=== PATIENT | female | born 1945 | race Caucasian/White ===

== ENCOUNTER 2019-08-05 12:20 | Emergency (ER) | payer MEDICARE, OTHER ==
[~2019-08-05] VITALS: Ht 172.7 cm; Wt 72.6 kg
[2019-08-05 12:37] VITALS: BP 130/80
[2019-08-05 13:25] LABS: Basophils # (auto) 0 uL; Basophils % (auto) 0.5 % (0.0-2.0); Eosinophils # (auto) 0.1 uL; Eosinophils % (auto) 1.1 % (0.0-7.0); Hematocrit 45.4 % (36.0-46.0); Hemoglobin 14.6 g/dL (12.2-16.2); Lymphocytes % (auto) 17.7 % (10.0-50.0); Mean Corpuscular Hgb Conc. 32.2 g/dL (32.0-36.0); Monocytes # (auto) 0.4 uL; Neutrophils # (auto) 3.9 uL; Neutrophils % (auto) 72.7 % (37.0-80.0); Platelet Count (auto) 282 10^3/uL (140-450); Red Cell Distribution Width 20.9 % (11.8-14.3); White Blood Cell 5.4 10^3/uL (4.4-10.8)
[2019-08-05 13:45] LABS: Albumin 2.9 g/dL (3.4-5.0); Anion Gap 5 (5-15); Blood Urea Nitrogen 25 mg/dL (7-18); Calcium 8.1 mg/dL (8.5-10.1); Carbon Dioxide 26 mmol/L (21-32); Chloride 107 mmol/L (98-107); Glucose 109 mg/dL (74-106); Potassium 3.8 mmol/L (3.5-5.1); Sodium 138 mmol/L (136-145)
[2019-08-05 13:54] LABS: Alanine Aminotransferase 22 U/L (13-56); Alkaline Phosphatase 111 U/L (45-117); Aspartate Aminotransferase 13 U/L (15-37); BUN/Creatinine Ratio 35.7; Bilirubin, Total 0.4 mg/dL (0.2-1.0); GFR African American 106 mL/min; GFR Non-African American 88 mL/min; Total Protein 6.5 g/dL (6.4-8.2)
== END 2019-08-05 15:35 | disposition left against medical advice (07) ==
LOC: ER 12:20 → EDBD 12:20 → ER 15:35
DX: R11.2 Nausea with vomiting, unspecified (principal); Z53.21 Procedure and treatment not carried out due to patient leaving prior to being seen by health care provider
CPT/HCPCS: 36415; 74176; 80053; 84484; 85025; 93005

== ENCOUNTER 2021-02-17 00:40 | Emergency (ER) | payer OTHER ==
[~2021-02-17] VITALS: Ht 162.6 cm; Wt 49.9 kg
[2021-02-17 01:42] LABS: Basophils # (auto) 0.1 10 ^3/uL (0-0.2); Basophils % (auto) 0.7 % (0.0-2.0); Eosinophils # (auto) 0.1 10 ^3/uL (0-0.8); Eosinophils % (auto) 1.3 % (0.0-7.0); Hematocrit 43.1 % (36.0-46.0); Hemoglobin 14.8 g/dL (12.2-16.2); Lymphocytes # (auto) 1.6 10 ^3/uL (0.4-5.4); Lymphocytes % (auto) 17.7 % (10.0-50.0); Mean Corpuscular Hemoglobin 29.5 pg (28.0-32.0); Mean Corpuscular Hgb Conc. 34.3 g/dL (32.0-36.0); Monocytes # (auto) 1.3 10 ^3/uL (0-1.3); Monocytes % (auto) 13.6 % (0.0-12.0); Neutrophils # (auto) 6.2 10 ^3/uL (1.6-8.6); Neutrophils % (auto) 66.7 % (37.0-80.0); Nucleated Red Blood Cells % 0.1 %; Red Blood Cells 5.01 10^6/uL (4.0-5.20); White Blood Cell 9.3 10^3/uL (4.4-10.8)
[2021-02-17 01:57] LABS: Alanine Aminotransferase 17 U/L (13-56); Albumin 2.9 g/dL (3.4-5.0); Anion Gap 9 (5-15); Aspartate Aminotransferase 17 U/L (15-37); BUN/Creatinine Ratio 23.8; Blood Urea Nitrogen 15 mg/dL (7-18); Calcium 8.3 mg/dL (8.5-10.1); Carbon Dioxide 28 mmol/L (21-32); Chloride 102 mmol/L (98-107); GFR African American 119 mL/min; GFR Non-African American 98 mL/min; Glucose 136 mg/dL (74-106); INR 0.99 (0.9-1.15); Magnesium 2.1 mg/dL (1.6-2.6); Sodium 139 mmol/L (136-145)
[2021-02-17] MEDS ORDERED: ONDANSETRON HCL 4 MG/2 ML VIAL IV ONE ×2 (02:00→12:30)
[2021-02-17 02:02] LABS: Alkaline Phosphatase 109 U/L (45-117); Bilirubin, Total 0.6 mg/dL (0.2-1.0); Total Protein 6.9 g/dL (6.4-8.2)
[2021-02-17] MEDS ORDERED: TETANUS-DIPTH-ACEL PERTUSSIS 0.5ML SYR Tdap IM ONE (05:00)
[2021-02-17] MEDS ORDERED: POTASSIUM EFFERVESENT TAB 25 MEQ PO ONE (05:15)
[2021-02-17] MEDS ORDERED: POTASSIUM CHL 20MEQ/100ML 100 ML IV STA (05:36)
[2021-02-17] MEDS ORDERED: METOCLOPRAMIDE HCL 5MG/ml INJ 2ml VIAL IV ONE (06:45)
[2021-02-17] MEDS ORDERED: fentaNYL CITRATE 100 MCG/2 ML VL IV ONE (06:45)
[2021-02-17 09:40] LABS: Urine Bacteria MOD /hpf (None Seen); Urine Blood 1+ /uL (Negative); Urine Mucus FEW (None Seen); Urine WBC 822 /hpf (0 - 5); Urine WBC Clumps PRESENT /hpf (None Seen)
[2021-02-17] MEDS ORDERED: MORPHINE SULF INJ 2 MG/ML SYRINGE 1ML IV ONE (12:30)
[2021-02-17 12:49] VITALS: BP 94/62
== END 2021-02-17 13:37 | disposition short-term general hospital (02) ==
LOC: ER 00:40 → EDBD 00:40 → ER 13:37
DX: S22.089A Unspecified fracture of T11-T12 vertebra, initial encounter for closed fracture (principal); S01.01XA Laceration without foreign body of scalp, initial encounter; E87.6 Hypokalemia; R62.7 Adult failure to thrive; Z88.2 Allergy status to sulfonamides; Z68.1 Body mass index [BMI] 19.9 or less, adult; Z20.822 Contact with and (suspected) exposure to COVID-19; W18.00XA Striking against unspecified object with subsequent fall, initial encounter; Y93.89 Activity, other specified; Y92.89 Other specified places as the place of occurrence of the external cause; Y99.8 Other external cause status
CPT/HCPCS: 12001; 36415; 70450; 71045; 72125; 72128; 72131; 80053; 81001; 83735; 83880; 84484; 85025; 85049; 85610; 87426; 90471; 90715; 93005; 96365; 96366; 96375; 96376; 99285; J2270; J2405; J2765; J3010; J3480; J7050

== ENCOUNTER 2022-05-21 13:03 | Emergency (ER) | payer OTHER ==
[~2022-05-21] VITALS: Ht 160 cm; Wt 59.0 kg
[2022-05-21] MEDS ORDERED: HYDROcodone-ACET 5/325MG TAB PO ONE (13:45)
[2022-05-21 14:19] LABS: Basophils # (auto) 0 10 ^3/uL (0-0.2); Basophils % (auto) 0.6 % (0.0-2.0); Eosinophils # (auto) 0 10 ^3/uL (0-0.8); Eosinophils % (auto) 0.1 % (0.0-7.0); Hematocrit 43.6 % (36.0-46.0); Hemoglobin 14.2 g/dL (12.2-16.2); Lymphocytes % (auto) 13.9 % (10.0-50.0); Mean Corpuscular Hemoglobin 27.9 pg (28.0-32.0); Mean Corpuscular Hgb Conc. 32.5 g/dL (32.0-36.0); Mean Corpuscular Volume 85.9 fL (80.0-100.0); Monocytes # (auto) 0.4 10 ^3/uL (0-1.3); Monocytes % (auto) 5.6 % (0.0-12.0); Neutrophils # (auto) 5.7 10 ^3/uL (1.6-8.6); Neutrophils % (auto) 79.8 % (37.0-80.0); Red Blood Cells 5.08 10^6/uL (4.0-5.20); White Blood Cell 7.1 10^3/uL (4.4-10.8)
[2022-05-21 14:29] LABS: Albumin 3.4 g/dL (3.4-5.0); Potassium 4.5 mmol/L (3.5-5.1)
[2022-05-21 14:32] LABS: BUN/Creatinine Ratio 17.9; Total Protein 7.4 g/dL (6.4-8.2)
[2022-05-21 14:35] LABS: INR 1.01 (0.9-1.15); Partial Thromboplastin Time 26.5 sec (24.6-33.4)
[2022-05-21 19:00] VITALS: BP 133/67
== END 2022-05-21 19:30 | disposition short-term general hospital (02) ==
LOC: ER 13:03 → EDBD 13:03 → ER 19:30
DX: S12.100A Unspecified displaced fracture of second cervical vertebra, initial encounter for closed fracture (principal); S09.90XA Unspecified injury of head, initial encounter; R41.82 Altered mental status, unspecified; M19.90 Unspecified osteoarthritis, unspecified site; J45.909 Unspecified asthma, uncomplicated; Z88.2 Allergy status to sulfonamides; Z20.822 Contact with and (suspected) exposure to COVID-19
CPT/HCPCS: 36415; 70450; 71045; 72125; 80053; 83880; 84484; 85025; 85610; 85730; 87426; 93005; 99285; L0120

== ENCOUNTER 2022-07-25 23:44 | Emergency (ER) | payer OTHER ==
[~2022-07-25] VITALS: Ht 160 cm; Wt 61.3 kg
[2022-07-26 00:42] LABS: Hematocrit 37.5 % (36.0-46.0); Hemoglobin 11.7 g/dL (12.2-16.2); Mean Corpuscular Hemoglobin 25.1 pg (28.0-32.0); Mean Corpuscular Hgb Conc. 31.2 g/dL (32.0-36.0); Mean Corpuscular Volume 80.7 fL (80.0-100.0); Red Blood Cells 4.64 10^6/uL (4.0-5.20); Red Cell Distribution Width 17.2 % (11.8-14.3); White Blood Cell 3.8 10^3/uL (4.4-10.8)
[2022-07-26 00:43] LABS: INR 1.02 (0.9-1.15); Partial Thromboplastin Time 26.8 sec (24.6-33.4)
[2022-07-26 00:49] LABS: Basophils % (manual) 0 (0.0-2.0); Blast Cells 0; Metamyelocytes % 0; Myelocytes % 0; Promyelocytes % 0
[2022-07-26 01:08] LABS: Calcium 8.7 mg/dL (8.5-10.1); Potassium 3.7 mmol/L (3.5-5.1)
[2022-07-26 01:13] LABS: BUN/Creatinine Ratio 16.7; Bilirubin, Total 0.4 mg/dL (0.2-1.0); Total Protein 6.7 g/dL (6.4-8.2)
[2022-07-26 02:00] LABS: Band Neutrophils % (manual) 3; Eosinophils % (manual) 11 (0-7); Lymphocytes % (manual) 35 (10.0-50.0); Monocytes % (manual) 22 (0-12); Reactive Lymphocytes 2
[2022-07-26] MEDS ORDERED: ALUM & MAG HYDROX-SIMETH LIQ(MAALOX) 30 ML PO ONE (02:30)
[2022-07-26] MEDS ORDERED: HYDROcodone-ACET 10/325MG TAB PO ONE (03:30)
[2022-07-26] MEDS ORDERED: PANTOPRAZOLE 40 MG TAB PO ONE (05:30)
[2022-07-26 13:45] VITALS: BP 127/76
== END 2022-07-26 13:55 | disposition short-term general hospital (02) ==
LOC: EDUNIT# 23:44 → ER 23:44 → EDBD 23:44 → ER 07-26 13:55
DX: I20.9 Angina pectoris, unspecified (principal); R05.9 Cough, unspecified; R07.89 Other chest pain; J45.909 Unspecified asthma, uncomplicated; K21.9 Gastro-esophageal reflux disease without esophagitis; E03.9 Hypothyroidism, unspecified; Z90.89 Acquired absence of other organs; Z88.2 Allergy status to sulfonamides
CPT/HCPCS: 36415; 80053; 83880; 84484; 85007; 85027; 85610; 85730; 87040; 93005

== ENCOUNTER 2022-08-31 19:57 | Emergency (ER) | payer OTHER ==
[~2022-08-31] VITALS: Ht 160 cm; Wt 54.0 kg
[2022-08-31 21:24] LABS: Eosinophils # (auto) 0.2 10 ^3/uL (0-0.8); Monocytes # (auto) 1.4 10 ^3/uL (0-1.3); Nucleated Red Blood Cells % 0.1 %; White Blood Cell 8.4 10^3/uL (4.4-10.8)
[2022-08-31 21:28] LABS: Basophils # (auto) 0.1 10 ^3/uL (0-0.2); Basophils % (auto) 0.9 % (0.0-2.0); Eosinophils % (auto) 2.9 % (0.0-7.0); Hematocrit 44.6 % (36.0-46.0); Lymphocytes # (auto) 1.8 10 ^3/uL (0.4-5.4); Lymphocytes % (auto) 22.1 % (10.0-50.0); Mean Corpuscular Hemoglobin 24.3 pg (28.0-32.0); Mean Corpuscular Hgb Conc. 31.5 g/dL (32.0-36.0); Mean Corpuscular Volume 77.3 fL (80.0-100.0); Monocytes % (auto) 17.2 % (0.0-12.0); Neutrophils # (auto) 4.8 10 ^3/uL (1.6-8.6); Neutrophils % (auto) 56.9 % (37.0-80.0); Red Blood Cells 5.77 10^6/uL (4.0-5.20); Red Cell Distribution Width 17.5 % (11.8-14.3)
[2022-08-31 21:38] LABS: Albumin 2.5 g/dL (3.4-5.0); Calcium 9.1 mg/dL (8.5-10.1)
[2022-08-31 21:41] LABS: BUN/Creatinine Ratio 14.7
[2022-08-31 21:43] LABS: Bilirubin, Total 0.5 mg/dL (0.2-1.0); Total Protein 6.9 g/dL (6.4-8.2)
[2022-08-31 21:57] LABS: Potassium 2.8 mmol/L (3.5-5.1)
[2022-08-31] MEDS ORDERED: POTASSIUM CHL 20 Meq TABLET PO ONE (22:15)
[2022-08-31] MEDS: POTASSIUM CHL 20MEQ/100ML 100 ML IV SCH (23:19)
[2022-08-31 23:40] LABS: Urine Bacteria FEW /hpf (None Seen); Urine Blood Negative /uL (Negative); Urine Hyaline Cast FEW /lpf (0 - 2); Urine Mucus FEW (None Seen); Urine Specific Gravity 1.016 (1.001-1.035); Urine WBC 5 /hpf (0 - 5)
[2022-09-01 02:00] VITALS: BP 109/61
[2022-09-01] MEDS ORDERED: HYDROcodone-ACET 10/325MG TAB PO ONE (02:00)
[2022-09-01] MEDS: POTASSIUM CHL 20MEQ/100ML 100 ML IV SCH (02:13)
== END 2022-09-01 06:22 | disposition home or self-care (01) ==
LOC: ER 19:57
DX: E87.6 Hypokalemia (principal); K52.9 Noninfective gastroenteritis and colitis, unspecified; M19.90 Unspecified osteoarthritis, unspecified site; J45.909 Unspecified asthma, uncomplicated; Z90.89 Acquired absence of other organs; Z88.2 Allergy status to sulfonamides; Z20.822 Contact with and (suspected) exposure to COVID-19
CPT/HCPCS: 36415; 74176; 80053; 81001; 84484; 85025; 87426; 93005; 96365; 96366; 99285; J3480; J7030

== ENCOUNTER 2022-09-26 23:05 | Emergency (ER) | payer OTHER ==
[~2022-09-26] VITALS: Ht 152.4 cm; Wt 70.0 kg
[2022-09-27 00:45] LABS: Basophils # (auto) 0.1 10 ^3/uL (0-0.2); Basophils % (auto) 0.8 % (0.0-2.0); Eosinophils # (auto) 0.4 10 ^3/uL (0-0.8); Eosinophils % (auto) 6.1 % (0.0-7.0); Hematocrit 34.2 % (36.0-46.0); Hemoglobin 11.2 g/dL (12.2-16.2); Lymphocytes # (auto) 1.8 10 ^3/uL (0.4-5.4); Lymphocytes % (auto) 26.3 % (10.0-50.0); Mean Corpuscular Hemoglobin 25.9 pg (28.0-32.0); Mean Corpuscular Hgb Conc. 32.9 g/dL (32.0-36.0); Mean Corpuscular Volume 78.7 fL (80.0-100.0); Monocytes # (auto) 0.6 10 ^3/uL (0-1.3); Monocytes % (auto) 8.5 % (0.0-12.0); Neutrophils # (auto) 4.1 10 ^3/uL (1.6-8.6); Neutrophils % (auto) 58.3 % (37.0-80.0); Red Blood Cells 4.34 10^6/uL (4.0-5.20)
[2022-09-27 00:46] LABS: Red Cell Distribution Width 21.8 % (11.8-14.3)
[2022-09-27 01:05] LABS: Albumin 2.1 g/dL (3.4-5.0); BUN/Creatinine Ratio 29.1; Calcium 7.9 mg/dL (8.5-10.1); Potassium 4.3 mmol/L (3.5-5.1)
[2022-09-27 01:07] LABS: Bilirubin, Total 0.4 mg/dL (0.2-1.0); Total Protein 5.5 g/dL (6.4-8.2)
[2022-09-27 01:24] LABS: INR 0.95 (0.9-1.15); Partial Thromboplastin Time 25.8 sec (24.6-33.4)
[2022-09-27 02:27] LABS: Urine Bacteria MOD /hpf (None Seen); Urine Blood Negative /uL (Negative); Urine Specific Gravity 1.002 (1.001-1.035); Urine WBC 2 /hpf (0 - 5)
[2022-09-27] MEDS ORDERED: levETIRAcetam 500 MG/5ML INJ IV ONE (02:30)
[2022-09-27] MEDS ORDERED: HYDROmorphone HCL 2 MG/ML VL/or syr IV ONE (03:00)
[2022-09-27] MEDS ORDERED: ONDANSETRON HCL 4 MG/2 ML VIAL IV ONE (03:00)
[2022-09-27 03:10] VITALS: BP 103/60
== END 2022-09-27 01:06 | disposition short-term general hospital (02) ==
LOC: EDBD 23:05 → ER 23:05
DX: S02.2XXA Fracture of nasal bones, initial encounter for closed fracture (principal); S00.81XA Abrasion of other part of head, initial encounter; S06.5XAA Traumatic subdural hemorrhage with loss of consciousness status unknown, initial encounter; S09.8XXA Other specified injuries of head, initial encounter; R22.0 Localized swelling, mass and lump, head; M54.2 Cervicalgia; W19.XXXA Unspecified fall, initial encounter; Y93.89 Activity, other specified; Y92.89 Other specified places as the place of occurrence of the external cause; Y99.8 Other external cause status
CPT/HCPCS: 36415; 70450; 70486; 72125; 80053; 81001; 84484; 85025; 85610; 85730; 93005; 96365; 96372; 99291; J1170; J1953; J2405; J7060

== ENCOUNTER 2023-10-01 17:02 | Emergency (ER) | payer MEDICARE, OTHER ==
[~2023-10-01] VITALS: Ht 160 cm; Wt 64.0 kg
[2023-10-01] MEDS ORDERED: ACET500T58 PO (20:34)
[2023-10-01 20:54] VITALS: BP 122/52; PULSE 89; RESP 19; TEMP 98; O2SAT 95
[2023-10-01] MEDS: CEPHALEXIN 250 MG CAP PO ONE (20:56)
== END 2023-10-01 20:56 | disposition home or self-care (01) ==
LOC: ER 17:02 → EDUNIT# 17:02 → EDBD 17:02 → ER 20:56
DX: S01.01XA Laceration without foreign body of scalp, initial encounter (principal); J45.909 Unspecified asthma, uncomplicated; K21.9 Gastro-esophageal reflux disease without esophagitis; Z88.2 Allergy status to sulfonamides; W18.09XA Striking against other object with subsequent fall, initial encounter; Y93.01 Activity, walking, marching and hiking; Y92.89 Other specified places as the place of occurrence of the external cause; Y99.8 Other external cause status
CPT/HCPCS: 12002; 70450; 93005

== ENCOUNTER 2024-06-17 13:41 | Emergency (ER) | payer MEDICARE, OTHER ==
[~2024-06-17 13:41] MED LIST: ACET500T58 PO
--- NOTE | 2024-06-17 14:59 | DVH ---
EXAM: XY CHEST PORTABLE TECHNIQUE: Single frontal chest radiograph CLINICAL HISTORY: short of breath COMPARISON: CHEST XRAY 1 VIEW on DOS: 07/26/22, CXR1 on DOS: 07/26/22, CHEST PORTABLE on DOS: 2 Findings/Impression: Frontal chest radiograph demonstrates no acute osseous or superficial soft tissue abnormalities. The trachea is midline. The cardiac silhouette and mediastinum are within normal limits. Mild pulmonary vascular congestion versus perihilar opacities. No pneumothorax or pleural effusions.
[2024-06-17 15:10] LABS: Chloride 105 mmol/L (98-107); Potassium 4.2 mmol/L (3.5-5.1); Sodium 137 mmol/L (136-145)
[2024-06-17 15:11] LABS: Anion Gap 5 (5-15); Basophils # (auto) 0.1 10 ^3/uL (0-0.2); Basophils % (auto) 0.4 % (0.0-2.0); Calcium 9.3 mg/dL (8.7-10.4); Carbon Dioxide 27 mmol/L (20-31); Eosinophils # (auto) 0.2 10 ^3/uL (0-0.8); Eosinophils % (auto) 1.3 % (0.0-7.0); Hematocrit 38.4 % (36.0-46.0); Hemoglobin 12.5 g/dL (12.2-16.2); Lymphocytes # (auto) 0.7 10 ^3/uL (0.4-5.4); Lymphocytes % (auto) 4.5 % (10.0-50.0); Mean Corpuscular Hemoglobin 27.8 pg (28.0-32.0); Mean Corpuscular Hgb Conc. 32.5 g/dL (32.0-36.0); Mean Corpuscular Volume 85.5 fL (80.0-100.0); Monocytes # (auto) 1.1 10 ^3/uL (0-1.3); Neutrophils # (auto) 13.2 10 ^3/uL (1.6-8.6); Neutrophils % (auto) 86.8 % (37.0-80.0); Platelet Count (auto) 284 10^3/uL (140-450); Red Blood Cells 4.49 10^6/uL (4.0-5.20); Red Cell Distribution Width 18.1 % (11.8-14.3); White Blood Cell 15.2 10^3/uL (4.4-10.8)
[2024-06-17 15:16] LABS: BUN/Creatinine Ratio 17.7 (10.0-20.0); Blood Urea Nitrogen 14 mg/dL (9-23); Glucose 119 mg/dL (74-106)
[2024-06-17 16:33] LABS: Urine Bacteria None Seen /hpf (None Seen)
--- NOTE | 2024-06-17 16:35 | ED.PDOC ---
SOB-HPI HPI Comments 78 y.o female with PMH of asthma, presents to the ED for a chief SOB associated with a nonproductive cough. 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 Patient states today while taking a shower, SOB worsened and was unable to speak in full sentences. EMS found patient with oxygen saturation in the low 80s on room air, administered one DuoNeb treatment on scene and placed patient on 4 liters of oxygen NC. Patient is not on any home oxygen at home, states she uses her inhaler and asthma medication but has minimal to no relief. She denies any other symptoms or pain at this time. Chief Complaint: Shortness of Breath Time Seen by MD: 16:10 Primary Care Provider: ENMA Wilkinson notes: Nurses Notes, Continuous Miner Operator Helper Notes, Medications, Allergies Information Source: Patient, Emergency Med Personnel Mode of Arrival: EMS Severity: Moderate Timing: Months Duration: Since onset Context: At Rest PE Risk Factors: None History of: Asthma Modifying Factors: Nothing Associated Signs and Symptoms: Cough If cough with SOB: Non-Productive Past Medical History PAST MEDICAL HISTORY: Arthritis, Asthma, GERD, Thyroid Surgical History: , Thyroidectomy ARCHITECTURAL DRAFTER History: No Pertinent ARCHITECTURAL DRAFTER History Family History Family History: Reviewed,noncontributory to illness Social History Smoker: Non-Smoker Alcohol: Denies ETOH Use Drugs: Denies Drug Use Lives In: Home Constitutional: denies: chills, diaphoresis, fatigue, fever, malaise, sweats, weakness, others EENTM: denies: blurred vision, double vision, ear bleeding, ear discharge, ear drainage, ear pain, ear ringing, eye pain, eye redness, hearing loss, mouth pain, mouth swelling, nasal discharge, nose bleeding, nose congestion, nose pain, photophobia, tearing, throat pain, throat swelling, voice changes, others Respiratory: reports: cough, SOB at rest, shortness of breath, SOB with excertion; denies: hemoptysis, orthopnea, stridor, wheezing, others Cardiovascular: denies: chest pain, dizzy spells, diaphoresis, Dyspnea on exertion, edema, irregular heart beat, left arm pain, lightheadedness, palpitations, PND, syncope, others Gastrointestinal: denies: abdomen distended, abdominal pain, blood streaked bowels, constipated, diarrhea, dysphagia, difficulty swallowing, hematemesis, melena, nausea, poor appetite, poor fluid intake, rectal bleeding, rectal pain, vomiting, others Genitourinary: denies: abnormal vagina bleeding, burning, dyspareunia, dysuria, flank pain, frequency, hematuria, incontinence, pain, , vagina discharge, urgency, others Neurological: denies: dizziness, fainting, headache, left sided numbness, left sided weakness, numbness, paresthesia, pre-existing deficit, right sided numbness, right sided weakness, seizure, speech problems, tingling, tremors, weakness, others Musculoskeletal: denies: back pain, gout, joint pain, joint swelling, muscle pain, muscle stiffness, neck pain, others Integumetry: denies: bruises, change in color, change in hair/nails, dryness, laceration, lesions, lumps, rash, wounds, others Allergic/Immunocompromised: denies: Difficulty Healing, Frequent Infections, Hives, Itching, others Hematologic/Lymphatic: denies: anemia, blood clots, easy bleeding, easy bruising, swollen glands, others Endocrine: denies: excessive hunger, excessive sweating, excessive thirst, excessive urination, flushing, intolerance to cold, intolerance to heat, unexplained weight gain, unexplained weight loss, others Psychiatric: denies: anxiety, bipolar disorder, depression, hopeless, panic disorder, schizophrenia, sleepless, suicidal, others All Other Systems: Reviewed and Negative Physical Exam General Appearance: Mild Distress HEENT: Normal ENT Inspection Neck: Full Range of Motion, Normal Inspection Respiratory: Decreased Breath Sounds, No Accessory Muscle Use, No Respiratory Distress, Wheezing Cardiovascular: No Edema, No JVD, Regular Rate/Rhythm Breast Exam: Deferred Gastrointestinal: Non Tender, Soft Genitalia: Deferred Pelvic: Deferred Rectal: Deferred Extremities: Normal inspection, Normal range of motion, Non-tender, No pedal edema Neurologic: Alert, No Motor Deficits, Normal Affect, Normal Mood, No Sensory Deficits Cerebellar Function: NOT DONE Reflexes: NOT DONE Skin: Dry, Normal Color, Warm Lymphatic: NOT DONE Was a procedure done? Was a procedure done?: No Differential Dx Differential Diagnosis: Asthma, Bronchitis, CHF, COPD, Pneumonia, Respiratory Distress, URI X-Ray, Labs, Meds, VS Vital Signs Date Time Temp Pulse Resp B/P (MAP) Pulse Ox O2 Delivery O2 Flow Rate FiO2 06/17/24 17:40 20 97 Nasal Cannula* 4 36 06/17/24 17:35 99.9 103 20 117/67 (84) 96 06/17/24 17:34 92 16 117/56 (76) 95 06/17/24 16:52 98.4 94 18 126/64 (84) 96 98.4 06/17/24 14:13 100 18 98 Nasal Cannula 4.0 06/17/24 14:11 98.7 100 18 133/75 (94) 98 98.7 Lab Test 06/17/24 17:52 06/17/24 16:46 06/17/24 14:47 06/17/24 14:33 Range/Units Troponin I High Sensitivity 13 14 14 </=34 ng/L White Blood Count 15.2 H 4.4-10.8 10^3/uL Red Blood Count 4.49 4.0-5.20 10^6/uL Hemoglobin 12.5 12.2-16.2 g/dL Hematocrit 38.4 36.0-46.0 % Mean Corpuscular Volume 85.5 80.0-100.0 fL Mean Corpuscular Hemoglobin 27.8 L 28.0-32.0 pg Mean Corpuscular Hemoglobin Concent 32.5 32.0-36.0 g/dL Red Cell Distribution Width 18.1 H 11.8-14.3 % Platelet Count 284 140-450 10^3/uL Mean Platelet Volume 7.4 6.9-10.8 fL Neutrophils (%) (Auto) 86.8 H 37.0-80.0 % Lymphocytes (%) (Auto) 4.5 L 10.0-50.0 % Monocytes (%) (Auto) 7.0 0.0-12.0 % Eosinophils (%) (Auto) 1.3 0.0-7.0 % Basophils (%) (Auto) 0.4 0.0-2.0 % Neutrophils # (Auto) 13.2 H 1.6-8.6 10 ^3/uL Lymphocytes # (Auto) 0.7 0.4-5.4 10 ^3/uL Monocytes # (Auto) 1.1 0-1.3 10 ^3/uL Eosinophils # (Auto) 0.2 0-0.8 10 ^3/uL Basophils # (Auto) 0.1 0-0.2 10 ^3/uL Nucleated Red Blood Cells 0.0 % Sodium Level 137 136-145 mmol/L Potassium Level 4.2 3.5-5.1 mmol/L Chloride Level 105 98-107 mmol/L Carbon Dioxide Level 27 20-31 mmol/L Anion Gap 5 5-15 Blood Urea Nitrogen 14 9-23 mg/dL Creatinine 0.79 0.550-1.02 mg/dL Glomerular Filtration Rate Calc 77 >90 mL/min BUN/Creatinine Ratio 17.7 10.0-20.0 Serum Glucose 119 H 74-106 mg/dL Lactic Acid Level 1.2 0.4-2.0 mmol/L Calcium Level 9.3 8.7-10.4 mg/dL B-Type Natriuretic Peptide 46.66 0-100 pg/mL Urine Color Light-yellow Yellow Urine Clarity Clear Clear Urine pH 5.0 5.0-9.0 Urine Specific [place] 1.019 1.001-1.035 Urine Protein Negative Negative Urine Ketones 1+ H Negative Urine Blood Negative Negative /uL Urine Nitrite Negative Negative Urine Bilirubin Negative Negative Urine Urobilinogen Normal Negative mg/dL Urine Leukocyte Esterase Negative Negative /uL Urine RBC 1 0 - 4 /hpf Urine WBC <1 0 - 5 /hpf Urine Squamous Epithelial Cells Few <5 /hpf Urine Bacteria None seen None Seen /hpf Urine Glucose Normal Normal mg/dL Current Medications Medications (Trade) Dose Ordered Sig/[place] Route Start Time Stop Time Status Last Admin Methylprednisolone Sodium Succinate (Solu Medrol) 125 mg ONCE ONCE IV 06/17/24 16:15 06/17/24 16:16 DC 06/17/24 17:19 Oxycodone/ Acetaminophen (Percocet 5/ 325MG Tablet) 2 tab ONCE ONCE PO 06/17/24 17:30 06/17/24 17:31 DC 06/17/24 17:34 Ceftriaxone Sodium 50 ml @ 100 mls/hr ONCE ONCE IV 06/17/24 18:00 06/17/24 18:29 DC 06/17/24 18:44 PROCEDURE(s): CXRP - CHEST PORTABLE REASON: short of breath ORDER NUMBER(s): [id number], ACCESSION NUMBER(s): [id number] EXAM: XY CHEST PORTABLE TECHNIQUE: Single frontal chest radiograph CLINICAL HISTORY: short of breath COMPARISON: CHEST XRAY 1 VIEW on DOS: 07/26/22, CXR1 on DOS: 07/26/22, CHEST PORTABLE on DOS: 05/21/22 Findings/Impression: Frontal chest radiograph demonstrates no acute osseous or superficial soft tissue abnormalities. The trachea is midline. The cardiac silhouette and mediastinum are within normal limits. Mild pulmonary vascular congestion versus perihilar opacities. No pneumothorax or pleural effusions. X-Ray, Labs, Meds, VS Comment 78-year-old female with a history of asthma complaining of shortness a breath Vitals unremarkable, note patient is on 4 L nasal cannula Exam remarkable for diminished breath sounds, scattered expiratory wheezes, no respiratory distress Chest x-ray Findings/Impression: Frontal chest radiograph demonstrates no acute osseous or superficial soft tissue abnormalities. The trachea is midline. The cardiac silhouette and mediastinum are within normal limits. Mild pulmonary vascular congestion versus perihilar opacities. No pneumothorax or pleural effusions. CBC, CMP, BNP, troponin, UA and lactate remarkable for WBC 15.2, left shift, no other abnormalities of acute significance Patient Received a DuoNeb treatment EN route to the ED In the ED the patient received the following: Albuterol 5 mg/Atrovent 0.5 mg nebulized, Solu-Medrol 125 mg IV, Rocephin 1 g IV, Zithromax 500 mg IV Case discussed with Dr. Candelaria at [facility] who will arrange for the patient to be transferred to either [facility] or [place]. Authorization [id number] Time of 1ST Reevaluation: 16:41 Reevaluation 1ST: Unchanged Patient Education/Counseling: Diagnosis, Treatment, Prognosis Family Education/Counseling: No Family Present Departure 1 Departure Time of Disposition: 17:57 Impression: Primary Impression: Asthma exacerbation Qualified Codes: J45.901 - Unspecified asthma with (acute) exacerbation Additional Impressions: Respiratory failure Qualified Codes: J96.90 - Respiratory failure, unspecified, unspecified whether with hypoxia or hypercapnia Pneumonitis Disposition: 02 SHORT TERM HOSPITAL Admit to: [facility] Condition: Guarded Critical Care Note Critical Care Time?: No Stability Stability form required: No Stable for transfer: To designated facility Heart Score Heart Score: Heart Score Response (Comments) Value History N/A 0 EKG N/A 0 Age N/A 0 Risk Factors N/A 0 Troponin N/A 0 Total 0 I personally scribed for PENNY PLUNKETT MD ([facility]) on 06/17/24 at 16:35. Electronically submitted by Irais Barrientos ([facility]). I personally scribed for PENNY PLUNKETT MD ([facility] on 06/17/24 at 16:42. Electronically submitted by Irais Barrientos ([facility]). I personally scribed for PENNY PLUKNETT MD ([facility]) on 06/17/24 at 18:57. Electronically submitted by Irais Barrientos ([facility]). PENNY PLUNKETT MD Jun 17, 2024 16:35
[2024-06-17 16:39] LABS: Urine Blood Negative /uL (Negative); Urine Clarity Clear (Clear); Urine Color Light-Yellow (Yellow); Urine Protein, UAD Negative (Negative); Urine Specific Gravity 1.019 (1.001-1.035); Urine Urobilinogen Normal (Negative); Urine WBC <1 /hpf (0 - 5)
[2024-06-17] MEDS: methylPREDNISolone SOD SUCC 125 MG/2 ML VL IV ONE (17:19)
[2024-06-17] MEDS: OXYCODONE W/ ACETAMINOPHEN 5/325MG TABLET PO ONE (17:34)
[2024-06-17] MEDS: AZITHROMYCIN 500MG/ 250ML 250 ML IV ONE (18:00)
[2024-06-17] MEDS: cefTRIAXone 1GM/50ML D5W 50 ML IV ONE (18:44)
[2024-06-17] MEDS: IPRATROPIUM BROM 0.5 MG/2.5ML INH SOL NEB ONE (21:11)
[2024-06-17] MEDS: ALBUTEROL SULF 2.5 MG/0.5ML(0.5%) NEB SOLN NEB ONE (21:11)
[2024-06-17 22:12] VITALS: BP 112/66; TEMP 97.6
[2024-06-17 22:17] VITALS: PULSE 100; RESP 18; O2SAT 98
== END 2024-06-17 22:25 | disposition short-term general hospital (02) ==
LOC: EDBD 13:41 → ER 13:41
DX: J45.901 Unspecified asthma with (acute) exacerbation (principal); J96.90 Respiratory failure, unspecified, unspecified whether with hypoxia or hypercapnia; J98.4 Other disorders of lung; K21.9 Gastro-esophageal reflux disease without esophagitis; M19.90 Unspecified osteoarthritis, unspecified site; Z90.89 Acquired absence of other organs; Z98.890 Other specified postprocedural states
CPT/HCPCS: 36415; 71045; 80048; 81001; 83605; 83880; 84484; 85025; 94640; 96365; 96366; 96368; 96375; 99285; J0456; J0696; J2919

== ENCOUNTER 2025-04-15 20:23 | Inpatient (IN) | payer MEDICARE, OTHER ==
[~2025-04-15] VITALS: Ht 157.5 cm; Wt 72.1 kg
[2025-04-15] MEDS: SODIUM CHLORIDE 0.9% 500 ML IV ONE (20:45)
--- NOTE | 2025-04-15 20:45 | ED.PDOC ---
SOB-HPI HPI Comments This is a 79-year-old female with past medical history of asthma, hypertension, fibromyalgia, rheumatoid arthritis, and hypothyroidism brought in by EMS to the hospital due to shortness of breaths. Per patient, she has shortness of breaths since 1 days, tried inhaler at home which did not help. She also reports of chest tightness and cough. She has severe shortness of breaths which can not speak in full sentences. She denies chest pain, headache, blurry vision, fever, or any motor/sensory deficits. Per EMS report, blood pressure at home was 149/85, and they nebulized enroute. EKG upon arrival at ER showed sinus tachycardia with poor R-wave progression. She uses oxygen as needed at home. Chief Complaint: Shortness of Breath Time Seen by MD: 20:27 Primary Care Provider: ENMA Mode of Arrival: EMS Past Medical History PAST MEDICAL HISTORY: Arthritis, Asthma, GERD, Thyroid Surgical History: , Thyroidectomy STAFF ELECTRONIC WARFARE OFFICER History: No Pertinent STAFF ELECTRONIC WARFARE OFFICER History Family History Family History: Reviewed,noncontributory to illness Social History Smoker: Non-Smoker Alcohol: Denies ETOH Use Drugs: Denies Drug Use Lives In: Home Physical Exam General Appearance: No Apparent Distress, Normal HEENT: Normal ENT Inspection, Pharynx Normal, TMs Normal Neck: Full Range of Motion, Non-Tender, Normal, Normal Inspection Respiratory: Accessory Muscle Use, Decreased Breath Sounds, Rhonchi, Wheezing Cardiovascular: No Edema, No JVD, No Murmur, No Gallop, Normal Peripheral Pulses, Regular Rate/Rhythm Breast Exam: Deferred Gastrointestinal: No Organomegaly, Non Tender, No Pulsatile Mass, Normal Bowel Sounds, Soft Genitalia: Deferred Pelvic: Deferred Rectal: Deferred Extremities: No calf tenderness, Normal capillary refill, Normal inspection, Normal range of motion, Non-tender, No pedal edema Neurologic: Alert, airline counter agent II-XII nml as Tested, No Motor Deficits, Normal Affect, Normal Mood, No Sensory Deficits Cerebellar Function: Normal Reflexes: Normal Skin: Dry, Normal Color, Warm Lymphatic: No Adenopathy Was a procedure done? Was a procedure done?: No Differential Dx Differential Diagnosis: Asthma, Bronchitis, Pneumonia X-Ray, Labs, Meds, VS Vital Signs Date Time Temp Pulse Resp B/P (MAP) Pulse Ox O2 Delivery O2 Flow Rate FiO2 04/15/25 22:12 98.5 104 20 147/112 (124) 96 98.5 04/15/25 21:03 24 98 Room Air* 0 21 21 04/15/25 20:33 104 04/15/25 20:32 99.0 101 24 131/87 98 99.0 Lab Test 04/15/25 21:00 04/15/25 20:53 Range/Units Urine Color Light-yellow Yellow Urine Clarity Clear Clear Urine pH 5.5 5.0-9.0 Urine Specific [place] 1.009 1.001-1.035 Urine Protein Negative Negative Urine Ketones Negative Negative Urine Blood Negative Negative /uL Urine Nitrite Negative Negative Urine Bilirubin Negative Negative Urine Urobilinogen Normal Negative mg/dL Urine Leukocyte Esterase Negative Negative /uL Urine RBC <1 0 - 4 /hpf Urine Microscopic WBC 2 0-5 /HPF Urine Squamous Epithelial Cells Few <5 /hpf Urine Bacteria None seen None Seen /hpf Urine Hyaline Casts Few 0 - 2 /lpf Urine Glucose Normal Normal mg/dL White Blood Count 6.4 4.4-10.8 10^3/uL Red Blood Count 4.50 4.0-5.20 10^6/uL Hemoglobin 13.8 12.2-16.2 g/dL Hematocrit 41.1 36.0-46.0 % Mean Corpuscular Volume 91.2 80.0-100.0 fL Mean Corpuscular Hemoglobin 30.6 28.0-32.0 pg Mean Corpuscular Hemoglobin Concent 33.5 32.0-36.0 g/dL Red Cell Distribution Width 15.8 H 11.8-14.3 % Platelet Count 254 140-450 10^3/uL Mean Platelet Volume 7.0 6.9-10.8 fL Neutrophils (%) (Auto) 29.1 L 37.0-80.0 % Lymphocytes (%) (Auto) 46.5 10.0-50.0 % Monocytes (%) (Auto) 11.1 0.0-12.0 % Eosinophils (%) (Auto) 12.3 H 0.0-7.0 % Basophils (%) (Auto) 1.0 0.0-2.0 % Neutrophils # (Auto) 1.9 1.6-8.6 10 ^3/uL Lymphocytes # (Auto) 3.0 0.4-5.4 10 ^3/uL Monocytes # (Auto) 0.7 0-1.3 10 ^3/uL Eosinophils # (Auto) 0.8 0-0.8 10 ^3/uL Basophils # (Auto) 0.1 0-0.2 10 ^3/uL Nucleated Red Blood Cells 0.1 % Sodium Level 141 136-145 mmol/L Potassium Level 4.0 3.5-5.1 mmol/L Chloride Level 106 98-107 mmol/L Carbon Dioxide Level 26 20-31 mmol/L Anion Gap 9 5-15 Blood Urea Nitrogen 10 9-23 mg/dL Creatinine 0.94 0.550-1.02 mg/dL Glomerular Filtration Rate Calc 63 >90 mL/min BUN/Creatinine Ratio 10.6 10.0-20.0 Serum Glucose 108 H 74-106 mg/dL Lactic Acid Level 2.0 0.4-2.0 mmol/L Calcium Level 9.1 8.7-10.4 mg/dL Magnesium Level 2.0 1.6-2.6 mg/dL Total Bilirubin 0.4 0.2-1.0 mg/dL Aspartate Amino Transferase (AST) 26 13-40 U/L Alanine Aminotransferase (ALT) 15 7-40 U/L Alkaline Phosphatase 89 46-116 U/L Troponin I High Sensitivity 5 </=34 ng/L Total Protein 7.0 5.7-8.2 g/dL Albumin 4.0 3.2-4.8 g/dL Current Medications Medications (Trade) Dose Ordered Sig/[place] Route Start Time Stop Time Status Last Admin Albuterol (Ventolin Medneb) 2.5 mg ONCE ONCE NEB 04/15/25 20:45 04/15/25 20:50 DC 04/15/25 21:03 Ipratropium [place] (Atrovent Medneb) 0.5 mg ONCE ONCE NEB 04/15/25 20:45 04/15/25 20:50 DC 04/15/25 21:03 Time of 1ST Reevaluation: 22:39 Reevaluation 1ST: Unchanged Patient Education/Counseling: Diagnosis, Treatment, Prognosis, Need For Follow Up Family Education/Counseling: No Family Present Comments Patient came to the hospital due to shortness of breaths, cough and chest tightness. EKGs showed poor R-wave progression with sinus tachycardia. Patient was vitally within normal limit. Patient was in severe shortness of breath could not speak in full sentences. Bilateral rhonchi and wheezing was present. Patient was given IV fluid, breathing treatment, and magnesium CBC, CMP, COVID and influenza Check. Chest x-ray ordered. Patient will be admitted at hospital due to severe shortness of breaths. SEPSIS Sepsis Screen Date sepsis recognized/suspect: Apr 15, 2025 Time Sepsis recognized/suspect: 2027 Recent Procedure: No On Antibiotic Therapy: No Respiratory Rate >20: Yes (24) Heart Rate >90: Yes (101) Temp<36 C (96.8 F) or >38.3 C: No SBP <90 or MAP <65 mmHG: No New Acute Mental Status Change: No Is the patient on CPAP, BIPAP,: No Physician Orders Electrocardigram (04/15/25 20:40) Chest Xray 1 View (04/15/25 20:33) Respiratory Culture W/ Gs (04/15/25 20:33) Covid19 Antigen Kelley (04/15/25 ) Rapid Influenza A&B (04/15/25 20:33) Magnesium Sulfate 1gm/100ml (04/15/25 20:45) Blood Culture (04/15/25 20:47) Vital Signs Date Time Temp Pulse Resp B/P (MAP) Pulse Ox O2 Delivery O2 Flow Rate FiO2 04/15/25 22:12 98.5 104 20 147/112 (124) 96 98.5 04/15/25 21:03 24 98 Room Air* 0 21 21 04/15/25 20:33 104 04/15/25 20:32 99.0 101 24 131/87 98 99.0 Laboratory Tests Test 04/15/25 20:53 Lactic Acid Level 2.0 mmol/L (0.4-2.0) White Blood Count 6.4 10^3/uL (4.4-10.8) Medications Medications Dose Ordered Sig/[place] Route Start Time Stop Time Status Last Admin Dose Admin Albuterol 2.5 mg ONCE ONCE NEB 04/15/25 20:45 04/15/25 20:50 DC 04/15/25 21:03 Ipratropium [place] 0.5 mg ONCE ONCE NEB 04/15/25 20:45 04/15/25 20:50 DC 04/15/25 21:03 Departure 1 Departure Time of Disposition: 22:40 Impression: Primary Impression: Acute exacerbation of asthma with allergic rhinitis Additional Impression: Acute hypoxic respiratory failure Disposition: 09 ADMITTED INPATIENT Admit to: Med Surg Condition: Guarded Critical Care Note Critical Care Time?: No Stability Stability form required: No Heart Score Heart Score: Heart Score Response (Comments) Value History N/A 0 EKG N/A 0 Age N/A 0 Risk Factors N/A 0 Troponin N/A 0 Total 0 ROHINI SHAFFER Apr 15, 2025 20:45
[2025-04-15] MEDS: ALBUTEROL SULF 2.5 MG/0.5ML(0.5%) NEB SOLN NEB ONE (21:03)
[2025-04-15] MEDS: IPRATROPIUM BROM 0.5 MG/2.5ML INH SOL NEB ONE (21:03)
[2025-04-15] MEDS: ALBUTEROL SULF 2.5 MG/0.5ML(0.5%) NEB SOLN ONE (21:04)
[2025-04-15] MEDS: IPRATROPIUM BROM 0.5 MG/2.5ML INH SOL ONE (21:04)
[2025-04-15 21:10] LABS: Hematocrit 41.1 % (36.0-46.0); Hemoglobin 13.8 g/dL (12.2-16.2); Mean Corpuscular Hemoglobin 30.6 pg (28.0-32.0); Mean Corpuscular Volume 91.2 fL (80.0-100.0); Nucleated Red Blood Cells % 0.1 %
[2025-04-15 21:24] LABS: Alanine Aminotransferase 15 U/L (7-40); Albumin 4.0 g/dL (3.2-4.8); Alkaline Phosphatase 89 U/L (46-116); Anion Gap 9 (5-15); BUN/Creatinine Ratio 10.6 (10.0-20.0); Bilirubin, Total 0.4 mg/dL (0.2-1.0); Blood Urea Nitrogen 10 mg/dL (9-23); Calcium 9.1 mg/dL (8.7-10.4); Carbon Dioxide 26 mmol/L (20-31); Chloride 106 mmol/L (98-107); Glucose 108 mg/dL (74-106); Magnesium 2.0 mg/dL (1.6-2.6); Potassium 4.0 mmol/L (3.5-5.1); Sodium 141 mmol/L (136-145); Total Protein 7.0 g/dL (5.7-8.2)
[2025-04-15 21:46] LABS: Urine Protein, UAD Negative (Negative)
[2025-04-15] MEDS: methylPREDNISolone SOD SUCC 40 MG/ML VL IV ONE (22:10)
[2025-04-15] MEDS: MAGNESIUM SULFATE 1GM/100ML 100 ML IV SCH (22:10)
[2025-04-16] VITALS (17 sets, daily range): BP systolic 109–147; BP diastolic 58–112; PULSE 65–107; RESP 12–20; TEMP 97.9–99.1; O2SAT 91–100
[2025-04-16] MEDS ORDERED: ONDANSETRON HCL 4 MG/2 ML VIAL IV PRN (01:30)
[2025-04-16] MEDS: ALBUTEROL SULF 2.5 MG/0.5ML(0.5%) NEB SOLN NEB PRN (02:41)
[2025-04-16] MEDS: IPRATROPIUM BROM 0.5 MG/2.5ML INH SOL NEB PRN (02:41)
[2025-04-16 03:37] LABS: COVID19 ANTIGEN SOFIA FIA NEGATIVE (NEGATIVE)
--- NOTE | 2025-04-16 04:06 | DVHHP2 ---
History of Present Illness Reason for Visit: Shortness for breath History of Present Illness 79-year-old female presents for evaluation of shortness for breath. Patient presents with a one day history of worsening shortness for breath not being relieved with her inhaler and nebulizer at home. She reports chest tightness. No cough or chills. No other acute complaints reported. Past Medical History William, thyroid, asthma Past Surgical History Thyroidectomy and Family History Noncontributory Smoke: No ALCOHOL: none Drugs: None Review of Systems Review of Systems Review of systems are currently negative otherwise addressed in HPI. Allergies: Coded Allergies: Sulfa Antibiotics (Verified Allergy, Unknown, 08/05/19) Medications Current Medications Medications Dose Ordered Sig/[place] Route Start Time Stop Time Status Last Admin Dose Admin Albuterol 2.5 mg Q6HPRN PRN NEB 04/16/25 01:30 04/16/25 02:41 2.5 MG Ipratropium [place] 0.5 mg Q6HPRN PRN NEB 04/16/25 01:30 04/16/25 02:41 0.5 MG Levothyroxine Sodium 112 mcg QAM@0600 PO 04/16/25 06:00 Triamterene/HCTZ 1 cap DAILY PO 04/16/25 10:00 Gabapentin 300 mg TID PO 04/16/25 06:00 Ondansetron HCl 4 mg Q4HP PRN IV 04/16/25 01:30 Acetaminophen 650 mg Q6HP PRN PO 04/16/25 01:30 Magnesium Sulfate/ Dextrose 100 ml @ 100 mls/hr Q1H IV 04/16/25 04:00 04/16/25 04:59 Exam Vital Signs Vital Signs Date Time Temp Pulse Resp B/P (MAP) Pulse Ox O2 Delivery O2 Flow Rate FiO2 04/16/25 02:30 94 18 97 04/16/25 01:55 98.1 152/83 (106) 98.1 04/16/25 01:55 Room Air 04/16/25 01:40 21 04/15/25 21:03 0 Exam Gen: 79-year-old female in mild distress Skin: Warm, dry, normal color and texture, no rash. HEENT: Normocephalic atraumatic, mucous membranes moist and pink. Neck: Cervical and supraclavicular nodes normal without enlargement, trachea is midline, thyroid gland is normal without masses. Pulmonary: Diminished breath sounds bilaterally Cardiac: Regular rate and rhythm. No murmur Abdomen: Soft, nontender, nondistended, bowel sounds present all 4 quadrants, no guarding, no rigidity, no organomegaly. Extremities: No cyanosis, clubbing, no edema Neuro: Cranial nerves II through XII grossly intact, normal affect and speech, no focal motor deficits. Labs/Xrays Labs Test 04/16/25 02:20 04/15/25 21:00 04/15/25 20:53 Range/Units Influenza Type A Antigen Negative Negative Influenza Type B Antigen Negative Negative SARS-CoV-2 Antigen (Rapid) Negative NEGATIVE Urine Color Light-yellow Yellow Urine Clarity Clear Clear Urine pH 5.5 5.0-9.0 Urine Specific [place] 1.009 1.001-1.035 Urine Protein Negative Negative Urine Ketones Negative Negative Urine Blood Negative Negative /uL Urine Nitrite Negative Negative Urine Bilirubin Negative Negative Urine Urobilinogen Normal Negative mg/dL Urine Leukocyte Esterase Negative Negative /uL Urine RBC <1 0 - 4 /hpf Urine Microscopic WBC 2 0-5 /HPF Urine Squamous Epithelial Cells Few <5 /hpf Urine Bacteria None seen None Seen /hpf Urine Hyaline Casts Few 0 - 2 /lpf Urine Glucose Normal Normal mg/dL White Blood Count 6.4 4.4-10.8 10^3/uL Red Blood Count 4.50 4.0-5.20 10^6/uL Hemoglobin 13.8 12.2-16.2 g/dL Hematocrit 41.1 36.0-46.0 % Mean Corpuscular Volume 91.2 80.0-100.0 fL Mean Corpuscular Hemoglobin 30.6 28.0-32.0 pg Mean Corpuscular Hemoglobin Concent 33.5 32.0-36.0 g/dL Red Cell Distribution Width 15.8 H 11.8-14.3 % Platelet Count 254 140-450 10^3/uL Mean Platelet Volume 7.0 6.9-10.8 fL Neutrophils (%) (Auto) 29.1 L 37.0-80.0 % Lymphocytes (%) (Auto) 46.5 10.0-50.0 % Monocytes (%) (Auto) 11.1 0.0-12.0 % Eosinophils (%) (Auto) 12.3 H 0.0-7.0 % Basophils (%) (Auto) 1.0 0.0-2.0 % Neutrophils # (Auto) 1.9 1.6-8.6 10 ^3/uL Lymphocytes # (Auto) 3.0 0.4-5.4 10 ^3/uL Monocytes # (Auto) 0.7 0-1.3 10 ^3/uL Eosinophils # (Auto) 0.8 0-0.8 10 ^3/uL Basophils # (Auto) 0.1 0-0.2 10 ^3/uL Nucleated Red Blood Cells 0.1 % Sodium Level 141 136-145 mmol/L Potassium Level 4.0 3.5-5.1 mmol/L Chloride Level 106 98-107 mmol/L Carbon Dioxide Level 26 20-31 mmol/L Anion Gap 9 5-15 Blood Urea Nitrogen 10 9-23 mg/dL Creatinine 0.94 0.550-1.02 mg/dL Glomerular Filtration Rate Calc 63 >90 mL/min BUN/Creatinine Ratio 10.6 10.0-20.0 Serum Glucose 108 H 74-106 mg/dL Lactic Acid Level 2.0 0.4-2.0 mmol/L Calcium Level 9.1 8.7-10.4 mg/dL Magnesium Level 2.0 1.6-2.6 mg/dL Total Bilirubin 0.4 0.2-1.0 mg/dL Aspartate Amino Transferase (AST) 26 13-40 U/L Alanine Aminotransferase (ALT) 15 7-40 U/L Alkaline Phosphatase 89 46-116 U/L Troponin I High Sensitivity 5 </=34 ng/L Total Protein 7.0 5.7-8.2 g/dL Albumin 4.0 3.2-4.8 g/dL SEPSIS Sepsis Screen Date sepsis recognized/suspect: Apr 16, 2025 Time Sepsis recognized/suspect: 0158 Recent Procedure: No On Antibiotic Therapy: No Respiratory Rate >20: No Heart Rate >90: Yes Temp<36 C (96.8 F) or >38.3 C: No SBP <90 or MAP <65 mmHG: No New Acute Mental Status Change: No Is the patient on CPAP, BIPAP,: No Physician Orders Electrocardigram (04/15/25 20:40) Chest Xray 1 View (04/15/25 20:33) Respiratory Culture W/ Gs (04/15/25 20:33) Blood Culture (04/15/25 20:47) Albuterol Medneb (Ventolin Medneb) (04/16/25 01:30) Ipratropium Medneb (Atrovent Medneb) (04/16/25 01:30) Levothyroxine Tablet (Synthroid Tablet) (04/16/25 06:00) Triamterene/Hctz (Dyazide 37.5/25mg Caps (04/16/25 10:00) Gabapentin Capsule (Neurontin Capsule) (04/16/25 06:00) Admit (04/16/25 01:29) Ondansetron Hcl (Zofran) (04/16/25 01:30) Condition: Stable (04/16/25 01:29) Acetaminophen Tablet (Tylenol Tablet) (04/16/25 01:30) Bedrest With Bathroom Privileg (04/16/25 01:29) Regular Diet (04/16/25 Breakfast) Magnesium Sulfate 1gm/100ml (04/16/25 04:00) Vital Signs Date Time Temp Pulse Resp B/P (MAP) Pulse Ox O2 Delivery O2 Flow Rate FiO2 04/16/25 02:30 94 18 97 04/16/25 02:30 94 18 97 04/16/25 01:55 98.1 94 20 152/83 (106) 97 98.1 04/16/25 01:55 94 20 97 Room Air 04/16/25 01:40 98.5 104 20 147/112 96 21 98.5 04/15/25 22:12 98.5 104 20 147/112 (124) 96 98.5 04/15/25 21:03 24 98 Room Air* 0 21 21 04/15/25 20:33 104 04/15/25 20:32 99.0 101 24 131/87 98 99.0 Laboratory Tests Test 04/15/25 20:53 Lactic Acid Level 2.0 mmol/L (0.4-2.0) White Blood Count 6.4 10^3/uL (4.4-10.8) Medications Medications Dose Ordered Sig/Gaviota Route Start Time Stop Time Status Last Admin Dose Admin Albuterol 2.5 mg ONCE ONCE NEB 04/15/25 20:45 04/15/25 20:50 DC 04/15/25 21:03 2.5 MG Albuterol 2.5 mg Q6HPRN PRN NEB 04/16/25 01:30 04/16/25 02:41 2.5 MG Ipratropium [place] 0.5 mg ONCE ONCE NEB 04/15/25 20:45 04/15/25 20:50 DC 04/15/25 21:03 0.5 MG Ipratropium [place] 0.5 mg Q6HPRN PRN NEB 04/16/25 01:30 04/16/25 02:41 0.5 MG Magnesium Sulfate/ Dextrose 100 ml @ 100 mls/hr Q1H IV 04/15/25 20:45 04/15/25 22:44 DC 04/15/25 22:10 100 MLS/HR Methylprednisolone Sodium Succinate 40 mg ONCE ONCE IV 04/15/25 20:45 04/15/25 20:50 DC 04/15/25 22:10 40 MG Sodium Chloride 500 ml @ 500 mls/hr Q1H ONCE IV 04/15/25 20:45 04/15/25 21:44 DC 04/15/25 20:45 500 MLS/HR Assessment/Plan Assessment/Plan Assessment Acute on chronic hypoxic respiratory failure Asthma exacerbation Thyroid Hypertension Plan Admit the patient to Med surge to the hospitalist Chest x-ray pending Med nebs Resume home medications Continue treatment per orders. Plan discussed with: Patient My Orders Orders - YARI STOLL AGACNP Procedure Category Date Status Time Albuterol Medneb PHA 04/16/25 In Process (Ventolin Medneb) 01:30 Ipratropium Medneb PHA 04/16/25 In Process (Atrovent Medneb) 01:30 Levothyroxine Tablet PHA 04/16/25 In Process (Synthroid Tablet) 06:00 Triamterene/Hctz PHA 04/16/25 In Process (Dyazide 37.5/25mg 10:00 Gabapentin Capsule PHA 04/16/25 In Process (Neurontin Capsule) 06:00 Admit ADMIT 04/16/25 Transmitted 01:29 Ondansetron Hcl PHA 04/16/25 In Process (Zofran) 01:30 Condition: Stable ANNALEE 04/16/25 In Process 01:29 Acetaminophen Tablet PHA 04/16/25 In Process (Tylenol Tablet) 01:30 Bedrest With Bathroom ANNALEE 04/16/25 In Process Privileg 01:29 Regular Diet DIET 04/16/25 Verified Breakfast Date of Service: Apr 16, 2025 Billing Provider: YARI STOLL Common Visit Codes: [id number] INP/OBS CARE (HIGH) YARI STOLL Apr 16, 2025 04:06
[2025-04-16] MEDS ORDERED: LEVO112T4 PO (04:16)
[2025-04-16] MEDS ORDERED: HYDR-4798 PO (04:16)
[2025-04-16] MEDS ORDERED: MONT-8 PO (04:16)
[2025-04-16] MEDS ORDERED: COLE1TAB PO (04:16)
[2025-04-16] MEDS ORDERED: DULO1CAP6 PO (04:16)
[2025-04-16] MEDS ORDERED: GABA-1250 PO (04:16)
[2025-04-16] MEDS ORDERED: ALBU108A5 INH (04:16)
[2025-04-16] MEDS ORDERED: PRAM0.7513 PO (04:18)
[2025-04-16] MEDS ORDERED: TIOT1AER INH (04:35)
[2025-04-16] MEDS ORDERED: METH5INJ (04:35)
[2025-04-16] MEDS ORDERED: [UNRECOGNIZED DRUG - CODE] (04:35)
[2025-04-16] MEDS ORDERED: NYS15PW TOP (04:35)
[2025-04-16] MEDS ORDERED: BENZ100C97 PO (04:35)
[2025-04-16] MEDS ORDERED: AZEL0.1S NAS (04:35)
[2025-04-16] MEDS ORDERED: OXYB5TAB14 PO (04:38)
[2025-04-16] MEDS: ACETAMINOPHEN 325 MG TAB PO PRN (04:38)
[2025-04-16] MEDS: MAGNESIUM SULFATE 1GM/100ML 100 ML IV SCH (04:39)
[2025-04-16] MEDS: GABAPENTIN 300 MG CAP PO SCH (04:59)
[2025-04-16] MEDS: LEVOTHYROXINE SODIUM 112 MCG TAB PO SCH (04:59)
--- NOTE | 2025-04-16 07:10 | ECG ---
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
--- NOTE | 2025-04-16 07:43 | DVH ---
CHEST RADIOGRAPH Indication: SOB Technique: Single frontal view of the chest was obtained Comparison: XR CHEST 1 VIEW on DOS: 02/14/25, XY CHEST PORTABLE on DOS: 06/17/24, CHEST XRAY 1 VIEW on D OS: 07/26/22, CXR1 on DOS: 07/26/22, CHEST PORTABLE on DOS: 05/21/22 FINDINGS: Lines and Tubes: None Lungs: No focal consolidation. Pleura: No effusion. No pneumothorax. Cardiomediastinal contours: Unremarkable Bones: No acute osseous abnormality. IMPRESSION: No acute cardiopulmonary disease.
[2025-04-16] MEDS: TRIAMTERENE/HCTZ 37.5/25 MG CAP/TAB PO SCH (10:51)
[2025-04-16] MEDS ORDERED: guaiFENesin-DM 100/10mg/5ml SYR PO PRN (12:30)
--- NOTE | 2025-04-16 12:32 | DVHPN2 ---
Progress Note Date Seen: Apr 16, 2025 Medical Necessity Reason Pt with a Central, PICC or Fol: No Subjective Patient reports: No new complaints Review of Systems: HEENT:Normal, CVS:Normal, RESPIRATORY:Normal, GI:Normal, :Normal, MSK:Normal, NEURO:Normal Objective vital signs Vital Sign Date Time Temp Pulse Resp B/P (MAP) Pulse Ox O2 Delivery O2 Flow Rate FiO2 04/16/25 10:51 122/77 04/16/25 09:02 65 14 100 04/16/25 08:57 97.9 97.9 04/16/25 06:30 Room Air* 0 21 Total Intake and Output 04/15/25 04/15/25 04/16/25 15:00 23:00 07:00 Intake Total 1100 ml Output Total 200 ml Balance 900 ml medications Current Medications Medications Dose Ordered Sig/[place] Route Start Time Stop Time Status Last Admin Dose Admin Albuterol 2.5 mg Q6HPRN PRN NEB 04/16/25 01:30 04/16/25 08:53 2.5 MG Ipratropium [place] 0.5 mg Q6HPRN PRN NEB 04/16/25 01:30 04/16/25 08:53 0.5 MG Levothyroxine Sodium 112 mcg QAM@0600 PO 04/16/25 06:00 04/16/25 04:59 112 MCG Triamterene/HCTZ 1 cap DAILY PO 04/16/25 10:00 04/16/25 10:51 1 CAP Gabapentin 300 mg TID PO 04/16/25 06:00 04/16/25 04:59 300 MG Ondansetron HCl 4 mg Q4HP PRN IV 04/16/25 01:30 Acetaminophen 650 mg Q6HP PRN PO 04/16/25 01:30 04/16/25 04:38 650 MG Acetaminophen/ Hydrocodone Bitart 1 tab Q6HP PRN PO 04/16/25 11:15 Examination: GENERAL:Normal, HEENT:Normal, NECK:Normal, LUNGS:Normal, LUNGS:Abnormal (rhonchi+), CVS:Normal, ABDOMEN:Normal, MSK:Normal, SKIN:Normal, NEURO:Normal, :Normal laboratory and microbiology Laboratory Tests 04/15/25 20:53 Test 04/15/25 20:53 Range/Units Serum Glucose 108 H 74-106 mg/dL Problem List/Assessment/Plan Problem List/Assessment/Plan #1 asthma with exacerbation; iv steroids #2 ? pneumonia- gram positive/neg: iv zithromax #3 htn #4 ? acute systolic/diastolic heart failure: lasix iv , echo #5 restless leg syndrome #6 polymyalgia: cymbalta #7 s/p parathyroid surg #8 s/p neck fracture/surg #9 allergies: jazz advance care planning- full code- time spent 19 mins Plan discussed with: Patient My Orders My Orders Orders - YARI VALLADARES MD Procedure Category Date Status Time Hydrocodone-Acet PHA 04/16/25 In Process 10/325mg Tab ([place] 11:15 Consistent DIET 04/16/25 Verified Carb(Ccho)Diabetes Lunch Fexofenadine Tablet PHA 04/16/25 Verified (Jazz Tablet) 12:30 Fexofenadine Tablet PHA 04/16/25 Verified (Jazz Tablet) 22:00 Duloxetine Hcl PHA 04/16/25 Verified Capsule (Cymbalta 18:00 Pramipexole Tablet PHA 04/16/25 Verified (Mirapex Tablet) 22:00 Guaifenesin-Dextromet PHA 04/16/25 Verified Liquid (Robitussin 12:30 Furosemide Injection PHA 04/16/25 Verified (Lasix Injection) 12:30 Montelukast Tablet PHA 04/16/25 Verified (Singulair Tablet) 22:00 Methylprednisolone PHA 04/16/25 Verified Sod Succ (Solu Medrol 12:30 Methylprednisolone PHA 04/16/25 Verified Sod Succ (Solu Medrol 22:00 Albuterol Medneb PHA 04/16/25 Verified (Ventolin Medneb) 18:00 Ipratropium Medneb PHA 04/16/25 Verified (Atrovent Medneb) 18:00 Azithromycin 500mg/ PHA 04/16/25 Verified 250ml (Zithromax 50 12:30 Azithromycin 500mg/ PHA 04/17/25 Verified 250ml (Zithromax 50 10:00 Echo 2d Mode Cardiac US 04/16/25 Verified DOP 12:21 Pt Request For Service PT 04/16/25 Verified 12:21 Basic Metabolic Panel LAB 04/17/25 Verified 06:00 Complete Blood Count LAB 04/17/25 Verified 06:00 Magnesium LAB 04/17/25 Verified 05:00 Date of Service: Apr 16, 2025 Billing Provider: YARI VALLADARES MD Common Visit Codes: [id number] INP/OBS CARE(HIGH) Secondary Visit Codes: [id number] CARE PLAN 30 MINUTES YARI VALLADARES MD Apr 16, 2025 12:32
[2025-04-16] MEDS: HYDROcodone-ACET 10/325MG TAB PO PRN (12:56)
[2025-04-16] MEDS: methylPREDNISolone SOD SUCC 40 MG/ML VL IV ONE (13:47)
[2025-04-16] MEDS: FEXOFENADINE HCL 60 MG TAB PO ONE (13:47)
[2025-04-16] MEDS: FUROSEMIDE 20 MG/2 ML VIAL IV ONE (13:48)
[2025-04-16] MEDS ORDERED: ALBUTEROL SULF 2.5 MG/0.5ML(0.5%) NEB SOLN NEB PRN (14:15)
[2025-04-16] MEDS: ALBUTEROL SULF 2.5 MG/0.5ML(0.5%) NEB SOLN ONE (14:21)
[2025-04-16] MEDS: AZITHROMYCIN 500MG/ 250ML 250 ML IV ONE (14:42)
[2025-04-16] MEDS: IPRATROPIUM BROM 0.5 MG/2.5ML INH SOL NEB SCH (18:19)
[2025-04-16] MEDS: ALBUTEROL SULF 2.5 MG/0.5ML(0.5%) NEB SOLN NEB SCH (18:19)
[2025-04-16] MEDS: PRAMIPEXOLE DIHYDROCHLORIDE MO 0.25 MG TAB PO SCH (21:41)
[2025-04-16] MEDS: methylPREDNISolone SOD SUCC 40 MG/ML VL IV SCH (21:41)
[2025-04-16] MEDS: MONTELUKAST SODIUM 10 MG TAB PO SCH (21:41)
[2025-04-16] MEDS: FEXOFENADINE HCL 60 MG TAB PO SCH (21:41)
[2025-04-17] VITALS (10 sets, daily range): BP systolic 113–131; BP diastolic 68–81; PULSE 75–99; RESP 16–20; TEMP 97.6–98.1; O2SAT 90–100
[2025-04-17] MEDS ORDERED: MELATONIN 5 MG TAB PO ONE
[2025-04-17] MEDS ORDERED: VANCOMYCIN PER PHARMACY 0 MG IV SCH (05:30)
[2025-04-17] MEDS: VANCOMYCIN 1.5GM/250ML IV ONE (05:56)
[2025-04-17 08:31] LABS: Hematocrit 37.5 % (36.0-46.0); Hemoglobin 12.6 g/dL (12.2-16.2); Mean Corpuscular Hemoglobin 30.7 pg (28.0-32.0); Mean Corpuscular Volume 91.6 fL (80.0-100.0); Nucleated Red Blood Cells % 0.0 %
[2025-04-17 08:46] LABS: Chloride 101 mmol/L (98-107); Potassium 4.3 mmol/L (3.5-5.1); Sodium 139 mmol/L (136-145)
[2025-04-17 08:47] LABS: Anion Gap 8 (5-15); Carbon Dioxide 30 mmol/L (20-31)
[2025-04-17 08:48] LABS: Calcium 8.8 mg/dL (8.7-10.4)
[2025-04-17 08:52] LABS: BUN/Creatinine Ratio 14.3 (10.0-20.0); Blood Urea Nitrogen 11 mg/dL (9-23)
[2025-04-17 08:53] LABS: Magnesium 2.2 mg/dL (1.6-2.6)
[2025-04-17 08:54] LABS: Glucose 136 mg/dL (74-106)
[2025-04-17] MEDS: AZITHROMYCIN 500MG/ 250ML 250 ML IV SCH (08:58)
--- NOTE | 2025-04-17 11:37 | DVHDS2 ---
Discharge Summary Date of Admission Apr 16, 2025 at 01:29 Date of Discharge: Apr 17, 2025 Labs/Diagnostic Data: Laboratory Results Test 04/17/25 07:58 04/16/25 02:20 04/15/25 21:00 04/15/25 20:53 White Blood Count 7.9 10^3/uL (4.4-10.8) Red Blood Count 4.09 10^6/uL (4.0-5.20) Hemoglobin 12.6 g/dL (12.2-16.2) Hematocrit 37.5 % (36.0-46.0) Mean Corpuscular Volume 91.6 fL (80.0-100.0) Mean Corpuscular Hemoglobin 30.7 pg (28.0-32.0) Mean Corpuscular Hemoglobin Concent 33.5 g/dL (32.0-36.0) Red Cell Distribution Width 16.1 % (11.8-14.3) Platelet Count 247 10^3/uL (140-450) Mean Platelet Volume 7.2 fL (6.9-10.8) Neutrophils (%) (Auto) 78.2 % (37.0-80.0) Lymphocytes (%) (Auto) 14.1 % (10.0-50.0) Monocytes (%) (Auto) 7.6 % (0.0-12.0) Eosinophils (%) (Auto) 0.0 % (0.0-7.0) Basophils (%) (Auto) 0.1 % (0.0-2.0) Neutrophils # (Auto) 6.1 10 ^3/uL (1.6-8.6) Lymphocytes # (Auto) 1.1 10 ^3/uL (0.4-5.4) Monocytes # (Auto) 0.6 10 ^3/uL (0-1.3) Eosinophils # (Auto) 0 10 ^3/uL (0-0.8) Basophils # (Auto) 0 10 ^3/uL (0-0.2) Nucleated Red Blood Cells 0.0 % Sodium Level 139 mmol/L (136-145) Potassium Level 4.3 mmol/L (3.5-5.1) Chloride Level 101 mmol/L (98-107) Carbon Dioxide Level 30 mmol/L (20-31) Anion Gap 8 (5-15) Blood Urea Nitrogen 11 mg/dL (9-23) Creatinine 0.77 mg/dL (0.550-1.02) Glomerular Filtration Rate Calc 79 mL/min (>90) BUN/Creatinine Ratio 14.3 (10.0-20.0) Serum Glucose 136 mg/dL (74-106) Calcium Level 8.8 mg/dL (8.7-10.4) Magnesium Level 2.2 mg/dL (1.6-2.6) Influenza Type A Antigen Negative (Negative) Influenza Type B Antigen Negative (Negative) SARS-CoV-2 Antigen (Rapid) Negative (NEGATIVE) Urine Color Light-yellow (Yellow) Urine Clarity Clear (Clear) Urine pH 5.5 (5.0-9.0) Urine Specific [place] 1.009 (1.001-1.035) Urine Protein Negative (Negative) Urine Ketones Negative (Negative) Urine Blood Negative /uL (Negative) Urine Nitrite Negative (Negative) Urine Bilirubin Negative (Negative) Urine Urobilinogen Normal mg/dL (Negative) Urine Leukocyte Esterase Negative /uL (Negative) Urine RBC <1 /hpf (0 - 4) Urine Microscopic WBC 2 /HPF (0-5) Urine Squamous Epithelial Cells Few /hpf (<5) Urine Bacteria None seen /hpf (None Seen) Urine Hyaline Casts Few /lpf (0 - 2) Urine Glucose Normal mg/dL (Normal) Lactic Acid Level 2.0 mmol/L (0.4-2.0) Total Bilirubin 0.4 mg/dL (0.2-1.0) Aspartate Amino Transferase (AST) 26 U/L (13-40) Alanine Aminotransferase (ALT) 15 U/L (7-40) Alkaline Phosphatase 89 U/L (46-116) Troponin I High Sensitivity 5 ng/L (</=34) Total Protein 7.0 g/dL (5.7-8.2) Albumin 4.0 g/dL (3.2-4.8) Other Laboratory Tests 04/17/25 07:58 Brief Hx & Hospital Course: see dictated note Condition at Discharge: Fair Final Diagnosis/Problems List asthma exacerbation Discharge Disposition: Home Discharge Instruct/Medications Diet: Cardiac 2g Na,low cholest Activity: No Restrictions, As Tolerated Follow Up/Referral: fu with pcp in 1 wk Medications: resume home meds script to pharmacy Scheduled Benzonatate (Benzonatate), 1 CAP PO TID, (Reported) Colestipol HCl (Colestipol Hydrochloride), 1 TAB PO BID, (Reported) Duloxetine HCl (Duloxetine HCl), 1 CAP PO DAILY, (Reported) Gabapentin (Gabapentin), 1 CAP PO TID, (Reported) Levothyroxine Sodium (Levothyroxine Sodium), 1 TAB PO DAILY, (Reported) Montelukast Sodium (Montelukast Sodium), 1 TAB PO DAILY, (Reported) Oxybutynin Chloride (Oxybutynin Chloride), 15 MG PO DAILY, (Reported) Pramipexole Dihydrochloride (Pramipexole Dihydrochlori), 0.25 MG PO DAILY, (Reported) Tiotropium [place]-Olodaterol (Stiolto Respimat 2.5-2.5 Mcg/Act), 2 PUFF INH DAILY, (Reported) Scheduled PRN Acetaminophen (Acetaminophen), 500 MG PO Q4HP PRN Miscellaneous Medications Adalimumab-Atto (Amjevita), (Reported) Albuterol Sulfate (Albuterol Sulfate Hfa), INH, (Reported) Azelastine Hcl (Azelastine Hcl), SANDRA, (Reported) Hydrocodone-Acetaminophen (Hydrocodone Bitartrate/AC 10-325 mg), TAB PO, (Reported) Methotrexate Sodium (Methotrexate Sodium), (Reported) Nystatin (Mycostatin), TOP, (Reported) Discharge Statement: "Patient was advised to return to the ER or call 911 if any headaches, dizziness, shortness of breath, chest pain, abdominal pain, bleeding, fevers, or worsening of medical condition. Patient was counseled about treatment plan, medications, possible side effects, patientverbalized understanding. All questions were answered to the best of my ability. This discharge took greater then 30 minutes in planning, reviewing documentation, counseling the patient, and discussing with other team members." ASSESSMENT ASSESSMENT Assessment asthma exacerbation Date of Service: Apr 17, 2025 Billing Provider: YARI VALLADARES MD Common Visit Codes: [id number] DISCH DAY >30min YARI VALLADARES MD Apr 17, 2025 11:37
[2025-04-17] MEDS ORDERED: PRED20TA2 PO (11:39)
[2025-04-17] MEDS ORDERED: DOXY-286 PO (11:39)
[2025-04-17] MEDS: NYSTATIN TOPICAL POWDER 15GM TOP SCH (11:45)
[2025-04-17] MEDS ORDERED: NYST-23 TOP (11:57)
[2025-04-17] MEDS: NYSTATIN TOPICAL CREAM 15GM TOP ONE (12:00)
--- NOTE | 2025-04-17 12:01 | DVHDS ---
DATE OF DISCHARGE: 04/17/2025 HISTORY OF PRESENT ILLNESS: The patient is a 79-year-old lady who is admitted with a history of worsening shortness of breath and cough and chest tightness. She has a history of asthma, parathyroid surgery, and fibromyalgia. HOSPITAL COURSE: The patient had a chest x-ray that showed no acute abnormality. Echocardiogram currently is pending. The patient was placed on antibiotics along with steroids. Her COVID and influenza tests were negative. The patient's 1 out of 2 blood cultures grew gram-positive cocci and pus is likely contaminant. She has been afebrile. The patient now wishes to go home and will be discharged to be on doxycycline 100 mg p.o. b.i.d. for 5 days and prednisone 20 mg in the morning for 5 days. She will follow up with her primary in 1 week. FINAL DIAGNOSES: * Asthma with exacerbation. * Questionable pneumonia, gram-positive, gram-negative. * Hypertension. * Questionable acute systolic/diastolic heart failure. * Restless leg syndrome. * Fibromyalgia. * History of parathyroid surgery. * Status post neck fracture/previous surgery. Time spent in discharge planning and review of plan with the patient and nursing was 39 minutes. MD TRENT Escalante/DANII TID: [id number] RECEIPT: [id number]
--- NOTE | 2025-04-17 13:01 | DVHSR ---
APPROVED REPORT EXAM: Two-dimensional and M-mode echocardiogram with Doppler and color Doppler. Blood Pressure: 122/77 mmHg INDICATION CHF RISK FACTORS Height: 62, Weight: 160 DIMENSIONS LVDd3.8 (3.8-5.7cm)LA (2D)3.8 (1.9-4.0cm)Aortic Root (2.0-3.7cm) LVDs2.4 (2.5-4.0cm)LA (MM) (1.9-4.0cm)Aortic Cusp Exc (1.5-2.0cm) EF (%) 69.0 (55-70%)Rt. Atrium (1.9-4.0cm)Asc. Aorta cm Mitral Valve MitralMitral Stenosis E wave0.95m/sMV Mean GR.mmHg A wave1.24m/sMV Peak GR.mmHg E/A ratio0.82D MVAcm2 DECEL [id number] 1/2 [id number] IVRTmsDop MVA3.38cm2 Aortic Valve Aortic ValveAortic Stenosis V11.07m/[place] Mean GR.8mmHg V21.84m/[place] Peak GR.14mmHg Tricuspid Valve TR Velocity2.75m/s [id number] Other Information Technically limited study due to body habitus and patient position. Patient was sitting straight up during exam due to having a hard time breathing. Conclusion lvef 65% grade 1 diastolic dysfunction normal rv function left atrium enlarged no severe valve abnormalities noted
[2025-04-17] MEDS ORDERED: NYSTATIN TOPICAL CREAM 15GM TOP SCH (22:00)
== END 2025-04-17 17:17 | disposition home or self-care (01) | DRG 177 ==
LOC: EDBD 20:23 → ER 20:23 → OVERFLOW 04-16 01:29 → WEST WING 04-16 01:34
PROVIDERS: ADMIT Internal Medicine; ATTEND Internal Medicine
DX: J15.69 Pneumonia due to other Gram-negative bacteria (principal); I50.41 Acute combined systolic (congestive) and diastolic (congestive) heart failure; J96.21 Acute and chronic respiratory failure with hypoxia; J45.901 Unspecified asthma with (acute) exacerbation; J15.9 Unspecified bacterial pneumonia; M79.7 Fibromyalgia; G25.81 Restless legs syndrome; K21.9 Gastro-esophageal reflux disease without esophagitis; M35.3 Polymyalgia rheumatica; I11.0 Hypertensive heart disease with heart failure; Z98.891 History of uterine scar from previous surgery; Z79.899 Other long term (current) drug therapy
CPT/HCPCS: 36415; 71045; 80048; 80053; 81001; 83605; 83735; 84484; 85025; 87040; 87077; 87186; 87426; 87804; 93005; 93306; 94640; 96360; G0378